=== PATIENT | female | born 1950 | race Two or more races ===

== ENCOUNTER → 2024-06-21 12:00 | Outpatient (REF) | payer MEDICARE, BC, SELFPAY | LOC: WDC 12:00 | DX: Z12.31 Encounter for screening mammogram for malignant neoplasm of breast (principal) | CPT/HCPCS: 77063; 77067 ==

== ENCOUNTER 2025-05-21 03:30 | Observation (INO) | payer MEDICARE, BC, SELFPAY ==
[2025-05-20 22:27] VITALS: BP 160/94
[2025-05-20 22:52] LABS: Hematocrit 42.7 % (37.0-47.0); Hemoglobin 13.9 g/dL (12.0-16.0); Mean Corp Hgb Conc. 32.6 g/dL (33.0-37.0); Mean Corpuscular Volume 92.0 fL (81.0-99.0); Nucleated Red Blood Cells % 0 %; Platelet Count 335 10^3/uL (130-400); Red Cell Dist. Width 14.6 % (11.5-14.5)
[2025-05-20 23:05] LABS: ALT (SGPT) 30 U/L (0-35); AST (SGOT) 22 U/L (14-36); Albumin 3.9 g/dl (3.5-5.0); Alkaline Phosphatase 101 U/L (38-126); Blood Urea Nitrogen 29 mg/dl (7-17); Calcium 10.3 mg/dl (8.4-10.2); Carbon Dioxide 37 mmol/L (22-30); Chloride 96 mmol/L (98-107); Glucose 119 mg/dl (70-99); Potassium 3.9 mmol/L (3.5-5.1); Sodium 133 mmol/L (135-145); Total Protein 6.8 g/dl (6.3-8.2); eGFR > 60.00
[2025-05-20 23:11] LABS: Urine Character Slightly Cloudy (Clear)
[2025-05-20 23:19] LABS: Urine Squamous Cell >30 /LPF (Few)
[2025-05-21] VITALS (18 sets, daily range): BP systolic 115–160; BP diastolic 60–81; BMI 28.7; BMI 29.8
--- NOTE | 2025-05-21 00:04 | ED.GENMED ---
History of Present Illness
<Fab Carmona PA-C - Last Filed: 05/22/25 11:03>
General
Chief Complaint: Abdominal Pain
Time Seen by Provider: 05/20/25 23:58
History of Present Illness
History of Present Illness:
75-year-old female with history of hypertension presents to the emergency department for evaluation of abdominal pain that began last night and increased today. Now localized to the right lower quadrant. Reports tactile fevers and chills as well.
No vomiting or diarrhea. Denies dysuria or hematuria. Prior abdominal surgical history includes hysterectomy
Review of Systems
<Fab Carmona PA-C - Last Filed: 05/22/25 11:03>
Review of Systems
Allergies reviewed?: Yes
All Other Systems: ROS reviewed and negative except as documented in HPI and ROS
Phy Exam
<Fab Carmona PA-C - Last Filed: 05/22/25 11:03>
Physical Exam
Physical Exam:
GEN: Well appearing, NAD, WDWN
HEENT: Oral mucosa moist, no scleral icterus
Cardiac: Mildly tachycardic, regular
Lung: No respiratory distress, no tachypnea
Abdomen: Soft, moderate to severe focal tenderness in the right lower quadrant with positive rebound, no diffuse peritoneal signs
MSK: No gross deformity or injuries
Skin: Good color, no pallor or jaundice, no rashes
Neuro: AO x3, moves all extremities freely
Psych: Calm, cooperative
Course
<Fab Carmona PA-C - Last Filed: 05/22/25 11:03>
Orders/Labs/Results
Orders:
Orders
05/20/25 22:40
Complete Blood Count/With Diff Urgent
Comprehensive Metabolic Panel Urgent
Urinalysis Urgent
Date Specimen was Collected: 05/20/25
Time Specimen was Collected: 22:34
Urine Microscopic Urgent
Date Specimen was Collected: 05/20/25
Time Specimen was Collected: 22:34
05/21/25 00:04
CT Abd/Pel (IV only)-DH only Urgent
Comment:
Reason For Exam: RLQ pain
0.9% Sodium Chloride 1000 ml [Nss] 1,000 ml IV BOLUS
05/21/25 01:54
HYDROmorphone [Dilaudid] 0.5 mg IV NOW STA
05/21/25 02:11
Ondansetron Injectable [Zofran] 4 mg IV NOW STA
05/21/25 03:11
Piperacillin/Tazo 3.375 Gram [Zosyn] 3.375 gram in 50 ml IV NOW
05/21/25 03:15
Admit/Transfer Patient As Directed
Co-Sign Provider:
Level of Care: Observation services
Assign to:: Medical/Surgical
Physician / Group: Dr. Dillon /surgical
Diagnosis: acute appendicitis with appendicolith
0.9% Sodium Chloride 1000 ml [Nss] 1,000 ml IV 80 mls/hr
05/21/25 03:16
PRN Pain Medication Management As Directed
May give lesser potent ordered pain med per pt: Yes
preference::
Protocol:: Medication orders for pain may be administered in a
manner that supports deferring to patient preference
when the pt is:
- Requesting an ordered lesser potent pain medication.
Least to most potent pain medications are defined
as: acetaminophen < NSAID < tramadol < opioids
(morphine, oxycodone, hydromorphone).
- Requesting a lesser dose of the same medication IF
ORDERED.
- Requesting a less intrusive route of administration
if both routes are prescribed by the provider (PO <
IV).
05/21/25 03:18
Code Status As Directed
Resuscitation Status: Full Code
05/21/25 05:14
Acetaminophen [Tylenol] 650 mg PO Q4HPRN PRN
Bisacodyl [Dulcolax] 10 mg RECTAL [id number] PRN
Docusate W/Senna [Senokot-S] 1 tablet PO BIDPRN PRN
HYDROmorphone [Dilaudid] 0.25 mg IV Q4HPRN PRN
HYDROmorphone [Dilaudid] 0.5 mg IV Q4HPRN PRN
Polyethylene Glycol Powder [Miralax] 17 grams PO DAILYPRN PRN
Prochlorperazine [Compazine] 5 mg IV Q6HPRN PRN
05/21/25 05:14
Activity As Directed
Activity Level: Out of Bed-Early Mobility
Pneumatic Compression Sleeves As Directed
Type: Knee high
Vital Signs As Directed
Frequency: Per unit guidelines
DX Deep Vein Thrombosis Video Routine
05/21/25 05:22
Basic Metabolic Panel IN AM
Complete Blood Count/No Diff IN AM
05/21/25 06:00
EKG [Electrocardiogram (*1)] IN AM
Reason for Study: QTc Monitoring
NPO
Allow oral meds: Yes
Allow clear liquids: No
05/21/25 09:00
Piperacillin/Tazo 3.375 Gram [Zosyn] 3.375 gram in 50 ml IV Q6H
05/21/25 18:00
Enoxaparin Sodium [Lovenox] 40 mg SC QPM
Abnormal Lab Results
05/20/25
22:40
WBC 19.5 H 10^3/uL
(4.8-10.8)
MCHC 32.6 L g/dL
(33.0-37.0)
RDW 14.6 H %
(11.5-14.5)
MPV 10.6 H fL
(7.4-10.4)
Abs Immat Gran (auto) 0.1 H 10^3/uL
(0-0.05)
Absolute Neuts (auto) 14.4 H 10^3/uL
(1.4-6.5)
Absolute Lymphs (auto) 3.8 H 10^3/uL
(1.2-3.4)
Absolute Monos (auto) 1.0 H 10^3/uL
(0.1-0.6)
Immature Gran % 0.7 H %
(0-0.5)
Lymphocytes % 19.3 L %
(20.5-51.1)
Sodium 133 L mmol/L
(135-145)
Chloride 96 L mmol/L
(98-107)
Carbon Dioxide 37 H mmol/L
(22-30)
BUN 29 H mg/dl
(7-17)
Glucose 119 H mg/dl
(70-99)
Calcium 10.3 H mg/dl
(8.4-10.2)
Urine Occult Blood 4+ A
(Negative)
Ur Leukocyte Esterase 1+ A
(Negative)
Urine RBC 7-10 A /HPF
(0-2)
Urine WBC 6-10 A /HPF
(0-5)
Urine Bacteria Many A
(Negative)
Urine Albumin 1+ A
(Neg - Trace)
05/20/25 22:40
05/20/25 22:40
Vital Signs
Initial and Last Documented VS:
Initial Vital Signs
Temp Pulse Resp BP Pulse Ox
97.4 F 104 20 160/94 97
05/20/25 22:27 05/20/25 22:27 05/20/25 22:27 05/20/25 22:27 05/20/25 22:27
Last Documented Vital Signs
Temp Pulse Resp BP Pulse Ox
97.9 F 64 16 160/77 98
05/22/25 07:46 05/22/25 07:46 05/22/25 07:46 05/22/25 07:46 05/22/25 10:53
Ellylt;Lu Medel PA-C - Last Filed: 05/21/25 03:08>
Orders/Labs/Results
Orders:
Orders
05/20/25 22:40
Complete Blood Count/With Diff Urgent
Comprehensive Metabolic Panel Urgent
Urinalysis Urgent
Date Specimen was Collected: 05/20/25
Time Specimen was Collected: 22:34
Urine Microscopic Urgent
Date Specimen was Collected: 05/20/25
Time Specimen was Collected: 22:34
05/21/25 00:04
CT Abd/Pel (IV only)-[facility] only Urgent
Comment:
Reason For Exam: RLQ pain
0.9% Sodium Chloride 1000 ml [Nss] 1,000 ml IV BOLUS
05/21/25 01:54
HYDROmorphone [Dilaudid] 0.5 mg IV NOW STA
05/21/25 02:11
Ondansetron Injectable [Zofran] 4 mg IV NOW STA
05/21/25 03:11
Piperacillin/Tazo 3.375 Gram [Zosyn] 3.375 gram in 50 ml IV NOW
05/21/25 03:15
Admit/Transfer Patient As Directed
Co-Sign Provider:
Level of Care: Observation services
Assign to:: Medical/Surgical
Physician / Group: Dr. Dillon /surgical
Diagnosis: acute appendicitis with appendicolith
0.9% Sodium Chloride 1000 ml [Nss] 1,000 ml IV 80 mls/hr
05/21/25 03:16
PRN Pain Medication Management As Directed
May give lesser potent ordered pain med per pt: Yes
preference::
Protocol:: Medication orders for pain may be administered in a
manner that supports deferring to patient preference
when the pt is:
- Requesting an ordered lesser potent pain medication.
Least to most potent pain medications are defined
as: acetaminophen < NSAID < tramadol < opioids
(morphine, oxycodone, hydromorphone).
- Requesting a lesser dose of the same medication IF
ORDERED.
- Requesting a less intrusive route of administration
if both routes are prescribed by the provider (PO <
IV).
05/21/25 03:18
Code Status As Directed
Resuscitation Status: Full Code
05/21/25 05:14
Acetaminophen [Tylenol] 650 mg PO Q4HPRN PRN
Bisacodyl [Dulcolax] 10 mg RECTAL [id number] PRN
Docusate W/Senna [Senokot-S] 1 tablet PO BIDPRN PRN
HYDROmorphone [Dilaudid] 0.25 mg IV Q4HPRN PRN
HYDROmorphone [Dilaudid] 0.5 mg IV Q4HPRN PRN
Polyethylene Glycol Powder [Miralax] 17 grams PO DAILYPRN PRN
Prochlorperazine [Compazine] 5 mg IV Q6HPRN PRN
05/21/25 05:14
Activity As Directed
Activity Level: Out of Bed-Early Mobility
Pneumatic Compression Sleeves As Directed
Type: Knee high
Vital Signs As Directed
Frequency: Per unit guidelines
DX Deep Vein Thrombosis Video Routine
05/21/25 05:22
Basic Metabolic Panel IN AM
Complete Blood Count/No Diff IN AM
05/21/25 06:00
EKG [Electrocardiogram (*1)] IN AM
Reason for Study: QTc Monitoring
NPO
Allow oral meds: Yes
Allow clear liquids: No
05/21/25 09:00
Piperacillin/Tazo 3.375 Gram [Zosyn] 3.375 gram in 50 ml IV Q6H
05/21/25 18:00
Enoxaparin Sodium [Lovenox] 40 mg SC QPM
Abnormal Lab Results
05/20/25
22:40
WBC 19.5 H 10^3/uL
(4.8-10.8)
MCHC 32.6 L g/dL
(33.0-37.0)
RDW 14.6 H %
(11.5-14.5)
MPV 10.6 H fL
(7.4-10.4)
Abs Immat Gran (auto) 0.1 H 10^3/uL
(0-0.05)
Absolute Neuts (auto) 14.4 H 10^3/uL
(1.4-6.5)
Absolute Lymphs (auto) 3.8 H 10^3/uL
(1.2-3.4)
Absolute Monos (auto) 1.0 H 10^3/uL
(0.1-0.6)
Immature Gran % 0.7 H %
(0-0.5)
Lymphocytes % 19.3 L %
(20.5-51.1)
Sodium 133 L mmol/L
(135-145)
Chloride 96 L mmol/L
(98-107)
Carbon Dioxide 37 H mmol/L
(22-30)
BUN 29 H mg/dl
(7-17)
Glucose 119 H mg/dl
(70-99)
Calcium 10.3 H mg/dl
(8.4-10.2)
Urine Occult Blood 4+ A
(Negative)
Ur Leukocyte Esterase 1+ A
(Negative)
Urine RBC 7-10 A /HPF
(0-2)
Urine WBC 6-10 A /HPF
(0-5)
Urine Bacteria Many A
(Negative)
Urine Albumin 1+ A
(Neg - Trace)
05/20/25 22:40
05/20/25 22:40
Vital Signs
Initial and Last Documented VS:
Initial Vital Signs
Temp Pulse Resp BP Pulse Ox
97.4 F 104 20 160/94 97
05/20/25 22:27 05/20/25 22:27 05/20/25 22:27 05/20/25 22:27 05/20/25 22:27
Last Documented Vital Signs
Temp Pulse Resp BP Pulse Ox
97.9 F 64 16 160/77 98
05/22/25 07:46 05/22/25 07:46 05/22/25 07:46 05/22/25 07:46 05/22/25 10:53
<Fab Carmona PA-C - Last Filed: 05/22/25 11:03>
MDM/Problems Addressed
MDM/Problems Addressed:
75-year-old female presenting with generalized than focal abdominal pain highly suspicious for acute appendicitis. Labs show leukocytosis to 20,000, patient will be sent for CT scan for further evaluation. Signed out to Lu Medel PA-C
pending imaging results and remainder of workup
<Fab Carmona PA-C - Last Filed: 05/22/25 11:03>
*Pulse Oximetry
SaO2: 97
Oxygen Mode of Delivery: Room air
<Lu Medel PA-C - Last Filed: 05/21/25 03:08>
*Pulse Oximetry
Patient hypoxic: no
*Critical Care Note
Total Time (30-74mins, 75-104mins- exclusive of procedures): Not Applicable
<Lu Medel PA-C - Last Filed: 05/21/25 03:08>
Update Note
Update Note:
I received patient in signout
Patient was found to have acute appendicitis
No perforation no abscess
Afebrile
No allergies to any antibiotics
Will start Zosyn
Patient requesting pain medicine will give Dilaudid
Discussed with general surgery Dr. Dillon
Will admit to house N.P.
ED Attending Note
<Fab Carmona PA-C - Last Filed: 05/22/25 11:03>
-
Portions of this chart may have been created with voice recognition software.� Occasional wrong word or��sound alike� substitutions may have occurred due to the inherent limitations of voice recognition software.
Discharge Plan
Departure
Patient Disposition: Admit
Date of Disposition: 05/21/25
Time of Disposition: 02:45
Admit to: Med/Surg
Presentation/result/management discussed w/ accepting MD/DO: Hospitalist
Condition: Fair
Discharge Problem:
Acute appendicitis
Interventions
Interventions:
*Risk Screen - Suicide Last Done: 05/20/25 22:27
*General Assessment Last Done: 05/21/25 00:29
*Neglect/Abuse Screening Last Done: 05/20/25 22:27
*ED- Fall Risk Assessment Last Done: 05/21/25 00:29
*ED COVID-19 Vaccine History Last Done: 05/21/25 00:29
*ED Influenza Vaccine History Last Done: 05/21/25 00:29
*Nursing Disposition Last Done: 05/21/25 10:49
QZ-Qydupr-Afjeetncmz Assessment Last Done: 05/21/25 00:10
Discharge Date and Time
Discharge Date/Time: 05/21/25 10:49
[2025-05-21] MEDS: NSS 1000 IV ×3 (00:32→18:20)
[2025-05-21] MEDS: ZOFRAN 4 MG IV (02:21)
[2025-05-21] MEDS: DILAUDID 0.5 MG IV (02:22)
--- NOTE | 2025-05-21 03:15 | HPS.HSE ---
Addendum entered and electronically signed by Manny Dillon MD 05/21/25 10:23:
Patient seen and examined.
Patient is a 75 yo F with a PMH of obesity, depression/anxiety, GERD, HTN, s/p laparoscopic cholecystectomy, s/p robotic hysterectomy, and s/p R TKR. Ms. Johnson presents with 24 hours of RLQ abdominal pain. She states that her symptoms began
acutely on Tuesday evening. She reports a more generalized abdominal discomfort at that time which localized to the RLQ. Her pain persisted throughout the day yesterday prompting presentation to the ER. Associated nausea, but no vomiting.
Associated low-grade fevers, no chills. She denies any GI or urinary symptoms.
Gen: NAD
Abd: soft, tender in RLQ, ND, non-peritoneal, incisions well healed
Labs and CT scan imaging were reviewed
Patient is a 75 yo F p/w acute appendicitis
The natural history and pathophysiology of appendicitis was discussed. Anatomy was reviewed. CT scan imaging as a relates to her appendix was reviewed. Options for management including medical management with antibiotics versus surgical
management with appendectomy were considered and discussed. The pros and cons of both approaches was discussed. Specifically, we discussed failure of medical management and future episodes of appendicitis versus surgical risks. We also discussed
that she is at increased risk for failure of medical management given the presence of her appendicolith. Recommended plan for appendectomy.
Plan for a laparoscopic appendectomy. The procedure itself, as well as the risks, benefits, and alternatives was discussed. Specifically, we discussed the risks of bleeding, infection, injury to surrounding structures (bowel), staple line leak,
need for open procedure. Typical postprocedural recovery including pain management and activity restrictions was discussed. All questions answered. Consent signed.
-- Laparoscopic appendectomy
-- NPO, IVF
-- Antibiotics: Zosyn
Original Note:
Family Physician
-
Family Physician: Zaira Moore DO
Chief Complaint
-
abdominal pain
History of Present Illness
a 75 years old female with PMH of HTN, GERD, anxiety. Present to ER with a complain of abdominal pain that started Tuesday night around 8pm. Pain started on upper abdomen/ epigastric area then extended to B/L quadrants, RLQ painful more than left.
Symtoms get worse today associated with nausea and vomiting x1, she also felt feverish tonight. Denies diarrhea, constipation, urinary symptoms, sob, chest pain or any other symptoms.
Medical History
Past Medical History
Past Medical History: Reports GERD, HTN and Psychiatric (anxiety)
Past Surgical History: Reports Cholecystectomy, Gynocological (hysterotomy ) and Orthopedic (RT hip replacement)
Social History
Tobacco: Non-smoker
Alcohol: Occasional
Drug: None
Personal:
Living: Assisted Living ([facility] )
Family History
Family History: Not pertinent
Allergies / Home Medications
Allergies reflects when Allergies were last updated in [facility].
Home Medications with original date entered in [facility]
Allergy/Medication List:
Patient Allergies
Allergy/AdvReac Type Severity Reaction Status Date / Time
No Known Allergies Allergy Verified 05/20/25 22:33
Home Medications Table - record
�Medication �Instructions �Recorded �Confirmed
diphenhydramine HCl 50 mg capsule 50 mg PO HS 05/21/25 05/21/25
(Sleep Aid (diphenhydramine))
escitalopram oxalate 5 mg tablet 5 mg PO DAILY 05/21/25 05/21/25
(Lexapro)
famotidine 20 mg tablet 20 mg PO DAILY 05/21/25 05/21/25
hydrochlorothiazide 12.5 mg tablet 12.5 mg PO DAILY 05/21/25 05/21/25
vitamin B12 0.5 mg-folic acid 1 mg 1 tab PO DAILY 05/21/25 05/21/25
tablet
Review of Systems
-
History Source: Patient
A 12 point ROS was completed and negative except as noted: Yes
Constitutional: Reports Fever
Respiratory: Reports No Symptoms
Cardiac: Reports No Symptoms
Abdomen/GI: Reports Abdominal Pain (B/L lower quadrants ), Nausea and Vomiting
: Reports No Symptoms
Musculoskeletal: Reports No Symptoms
Psych: Reports No Symptoms
Physical Exam
Vital Signs
Vital Signs
Temp Pulse Resp BP Pulse Ox
100.3 F 110 14 154/81 96
05/21/25 01:00 05/21/25 02:45 05/21/25 02:45 05/21/25 02:00 05/21/25 02:45
Physical Exam
General: No Apparent Distress
Respiratory: Clear
Cardiac: Regular Rhythm
GI: Soft, Normal Bowel Sounds and Tender (B/L lower quadrants RT side more than left )
Neuro: Awake and AO x 3
Laboratory Results
-
05/20/25 22:40
05/20/25 22:40
Laboratory Results
Total Bilirubin 0.3 mg/dl (0.2-1.3) 05/20/25 22:40
AST 22 U/L (14-36) 05/20/25 22:40
ALT 30 U/L (0-35) 05/20/25 22:40
Alkaline Phosphatase 101 U/L (38-126) 05/20/25 22:40
Data Reviewed
-
CT Scan: Discussed with Patient
Lab Data: Discussed with Patient
Impression/Plan
-
CT abd/PLVS shows
-Finding compatible with acute appendicitis
-8mm obstructing appendicolith
-the appendix is dilated, measuring up to 12 mm in diameter, fluid distended, and mildly hyperenhancing.
-mild periappendiceal inflammatory fat stranding
-No signs of perforation or abscess formation
WBC 19.5
IMPRESSION:
Acute appendicitis with appendicolith
PLAN:
Admit/ observation/ med-surg (dr. Dillon / surgical services)
NPO
IVF
Abt Zosyn
antiemetics as needed.
analgesics as needed.
Hypertension
Continue hydrochlorothiazide
GERD
C/W famotidine
Anxiety
Currently on Lexapro
DVT prophylaxis Lovenox
Code status Full code
[2025-05-21] MEDS: ZOSYN 50 IV ×4 (03:22→20:28)
[2025-05-21 05:42] LABS: Hematocrit 38.0 % (37.0-47.0); Hemoglobin 12.1 g/dL (12.0-16.0); Mean Corp Hgb Conc. 31.8 g/dL (33.0-37.0); Mean Corpuscular Volume 92.2 fL (81.0-99.0); Platelet Count 266 10^3/uL (130-400); Red Cell Dist. Width 14.7 % (11.5-14.5)
[2025-05-21 05:46] LABS: Blood Urea Nitrogen 22 mg/dl (7-17); Calcium 9.1 mg/dl (8.4-10.2); Carbon Dioxide 32 mmol/L (22-30); Chloride 102 mmol/L (98-107); Estimated Creatinine Clearance 55 ml/min; Glucose 134 mg/dl (70-99); Potassium 4.2 mmol/L (3.5-5.1); Sodium 134 mmol/L (135-145); eGFR > 60.00
[2025-05-21] MEDS: DILAUDID 0.25 MG IV ×3 (05:50→21:46)
[2025-05-21] MEDS: PEPCID 20 MG PO (08:33)
[2025-05-21] MEDS: ORETIC 12.5 MG PO (09:49)
--- NOTE | 2025-05-21 10:01 | CM ---
Chart reviewed and spoke with patient at ED bedside
RAMOS reviewed with patient and the copy given to pt
Lives alone in [facility]
Independent with ADLs and ambulation
Drives
no DME
PCP Dr. Zaira Moore
[facility] in [place]
no hx of VN nor SNF
DCP is to return home
CM will continue to follow up for any dcp needs
--- NOTE | 2025-05-21 10:25 | W.SUR.PREOP ---
Pre-Operative Surgical Note
-
I have examined this patient prior to the performance of the scheduled procedure.
The patient's condition is unchanged from the time of the current History and
Physical and the patient is able to undergo the scheduled procedure.
--- NOTE | 2025-05-21 11:30 | PTCARENOTE ---
received patient from ER- ambulated with assistance to bed. oriented to room and routine. patient reporting abdominal pain throughout abdomen, rating 8/10, reviewed with patient she had pain medication within the hour and patient said she was fine
and did not need any more medication. denied nausea. call rader in reach. instructed patient to call for assistance with ambulation , voiced understanding.
--- NOTE | 2025-05-21 14:22 | W.IMMPOSTOP ---
Surgical Immed Post Op Note
-
Primary Surgeon: Santana
Assisting Surgeon: None
Pre-op Diagnosis: Acute appendicitis
Post-op Diagnosis: Acute perforated appendicitis
Procedure Performed: Laparoscopic appendectomy
Anesthesia Type: General
Specimen / Cultures:
1. Appendix
Estimated Blood Loss: 3 cc
Complications: None
Operative Findings:
1. Adhesions to TI and pelvic side wall take down bluntly, distended inflamed appendix with small contained perforation in mid body of appendix, feculent contamination immediately controlled
2. Based taken with win load stapler with cuff of healthy cecum, mesentery with Ligasure device
--- NOTE | 2025-05-21 15:45 | PTCARENOTE ---
received from PACU in bed, awake and oriented x3, vitals noted. patient denies pain or nausea. abdomen with 4 puncture sites , surgical glue intact. call rader in reach- and pateint instructed to call for assistance if needed to get out of bed,
voiced understanding. plan of care on going.
[2025-05-21] MEDS: LOVENOX 40 MG SC (18:21)
--- NOTE | 2025-05-22 03:02 | DOWNTIME ---
There was a [employer] Downtime on 05/22/2025 from 0100 to 05/22/2025 at 0255. Downtime documentation of patient's care, including medication administrations, has been reconciled in the electronic record per guidelines. Refer to the
patient's paper chart under the miscellaneous tab to see printed paper medication records and downtime forms.
[2025-05-22] MEDS: DILAUDID 0.25 MG IV (03:04)
[2025-05-22] MEDS: ZOSYN 50 IV ×2 (03:04→08:42)
[2025-05-22 07:34] LABS: Hematocrit 33.7 % (37.0-47.0); Hemoglobin 10.8 g/dL (12.0-16.0); Mean Corp Hgb Conc. 32.0 g/dL (33.0-37.0); Mean Corpuscular Volume 96.0 fL (81.0-99.0); Platelet Count 219 10^3/uL (130-400); Red Cell Dist. Width 14.6 % (11.5-14.5)
[2025-05-22 07:46] VITALS: BP 160/77
[2025-05-22 08:13] LABS: Blood Urea Nitrogen 15 mg/dl (7-17); Calcium 8.7 mg/dl (8.4-10.2); Carbon Dioxide 28 mmol/L (22-30); Chloride 103 mmol/L (98-107); Glucose 117 mg/dl (70-99); Potassium 3.9 mmol/L (3.5-5.1); Sodium 133 mmol/L (135-145)
[2025-05-22] MEDS: ORETIC 12.5 MG PO (08:17)
[2025-05-22] MEDS: PEPCID 20 MG PO (08:17)
[2025-05-22 08:28] LABS: Estimated Creatinine Clearance 64 ml/min; eGFR > 60.00
--- NOTE | 2025-05-22 09:47 | CM ---
Addendum entered by Chloé Jimenes 05/22/25 11:14:
Pt discharged today to home no needs. Offered pt VN services if she is elegible but she declined
Original Note:
POD #1. On IV abx and IV pain medicine. Checking on VN eligibility. Pt lives at [facility] in independent living
Plan:DC to [facility], with services if she is eligible
[2025-05-22] MEDS: NSS IV (10:17)
--- NOTE | 2025-05-22 11:14 | W.PN.GS2 ---
Today's Communication / Plan
-
-- DC today if tolerates diet and pain controlled
-- DC on Augmentin for 4 days
Assessment / Plan
-
Patient is a 75 yo F p/w acute perforated appendicitis
POD#1 s/p laparoscopic appendectomy
AVSS
Labs with downtrending WBC, stable Hb, hyponatremia, normal renal function
Advance diet. OK for DC if tolerating diet and pain controlled. DC on 4 days abx.
-- Regular diet
-- HLIV
-- Pain control: Tylenol, Toradol, Oxycodone
-- Home meds
-- Abx: Zosyn, Augmentin on DC for 4 days
-- DVT: Lovenox
-- DC today
Subjective Data
-
Date of Service: May 22, 2025
No concerns or complaints. Pain well-controlled. No nausea or vomiting. No fevers. No flatus or BM.
Objective Data
-
Intake and Output
05/21/25 05/22/25 05/23/25
06:59 06:59 06:59
Intake Total 1560 / 1560
Balance 1560 / 1560
Intake:
IV fluids (Total) 1460 / 1460
Normosol 100 / 100
IV piggybacks 100 / 100
Other:
Number of approximated MODERATE 2
amounts of urine
Vital Signs
Temp Pulse Resp BP Pulse Ox
97.9 F 64 16 160/77 98
05/22/25 07:46 05/22/25 07:46 05/22/25 07:46 05/22/25 07:46 05/22/25 10:53
Lab Results
05/22/25 06:31
05/22/25 06:31
Calcium 8.7 mg/dl (8.4-10.2) 05/22/25 06:31
Total Bilirubin 0.3 mg/dl (0.2-1.3) 05/20/25 22:40
AST 22 U/L (14-36) 05/20/25 22:40
ALT 30 U/L (0-35) 05/20/25 22:40
Alkaline Phosphatase 101 U/L (38-126) 05/20/25 22:40
Total Protein 6.8 g/dl (6.3-8.2) 05/20/25 22:40
Albumin 3.9 g/dl (3.5-5.0) 05/20/25 22:40
Physical Exam
-
Gen: NAD
Abd: soft, mild tenderness, ND, non-peritoneal, incisions c/d/i - no erythema, ecchymosis or drainage
Patient has a bernal catheter: No
Patient has a central line: No
[2025-05-22 13:11] VITALS: BP 136/76
== END 2025-05-22 13:29 | disposition home or self-care (01) ==
LOC: 4 EAST ACU 03:30
PROVIDERS: Nurse Practitioner Family; ADMITTING PHYSICIAN Surgery; EMERGENCY PHYSICIAN Emergency Medicine; FAMILY PHYSICIAN Family Medicine
DX: K35.32 Acute appendicitis with perforation, localized peritonitis, and gangrene, without abscess (principal); E87.1 Hypo-osmolality and hyponatremia; F41.9 Anxiety disorder, unspecified; I10 Essential (primary) hypertension; K21.9 Gastro-esophageal reflux disease without esophagitis; K66.0 Peritoneal adhesions (postprocedural) (postinfection); Z79.899 Other long term (current) drug therapy
CPT/HCPCS: 44970; 74177; 80048; 80053; 81003; 81015; 85025; 85027; 88304; 93005; 96361; 96374; 96375; 99285; G0378; Q9967